=== PATIENT | female | born 1960 | race Caucasian/White ===

== ENCOUNTER 2023-04-21 10:43 | Day surgery (SDC) | payer MEDICAID, SELFPAY ==
[2023-04-21 11:25] VITALS: BP 143/64; PULSE 58; RESP 18; TEMP 36.6; O2SAT 99
[2023-04-21] MEDS: Tropicam./Phenyleph. (1/2.5%) 5 ML BTL OD ×3 (11:35→11:44)
--- NOTE | 2023-04-21 11:43 | ANES.PREOP_ITS ---
General Info Date of Service Date Performed: 04/21/23 Height: 4 ft 11 in Weight: 47.2 kg Body Mass Index (BMI): 20.9 Surgical Procedure: Operation Date: 04/21/23 12:55 Proposed Procedure Side Surgeon p Cataract Extraction with IOL Implant Right Polo Taylor MD Meds Allergies and Home Medications Allergies Allergy/AdvReac Type Severity Reaction Status Date / Time No Known Allergies Allergy Unverified 04/21/23 11:29 Home Medication Medication Instructions Recorded lisinopril 10 mg tablet 10 mg PO DAILY 04/18/23 naproxen 500 mg tablet 500 mg PO BID 04/18/23 nicotine 7 mg/24 hr daily 7 mg transdermal DAILY 04/18/23 transdermal patch simvastatin 20 mg tablet 10 mg PO DAILY 04/18/23 timolol 0.5 % eye drops 1 drp ophthalmic (eye) QAM 04/18/23 triamcinolone acetonide 0.1 % 1 applic topical BID 04/18/23 topical cream Current Visit Medications: Current Medications Generic Name Dose Route Start Last Admin Trade Name Freq PRN Reason Stop Dose Admin Acetaminophen 1,000 mg 04/21/23 06:00 Acetaminophen 500 Mg Tab PO 05/21/23 05:59 Q4H PRN PRN Balanced Salt Solution 500 ml 04/21/23 06:00 Balanced Salt Soln.-Plus 500 Ml Bag OP 05/21/23 05:59 DIRECTED COUNTS INCLUDE 234 BEDS AT THE [facility] Miscellaneous Medication 0 ml 04/21/23 06:00 Prednisolone 1%, Moxifloxacin 0.5%, Nepafenac 0.1% 5ml Btl OD 05/21/23 05:59 DIRECTED ISA Miscellaneous Medication 0 ml 04/21/23 06:00 04/21/23 11:40 Tropicam./Phenyleph. (1/2.5%) 5 Ml Btl OD 05/21/23 05:59 1 drp DIRECTED ISA Administration Tetracaine HCl 0 ml 04/21/23 06:00 Tetracaine 0.5% 4 Ml Btl OD 05/21/23 05:59 DIRECTED ISA PFSH Active Problems Active Problems: Problem Status Onset Code Nuclear age-related cataract, right eye H25.11 Medical History Medical History Backache Cataract Congestion of respiratory tract COPD (chronic obstructive pulmonary disease) Cough productive of clear sputum Elevated blood pressure reading without diagnosis of hypertension Glaucoma HLD (hyperlipidemia) Lumbago with sciatica Nicotine dependence Posterior rhinorrhea Shortness of breath at rest Trochanteric bursitis of right hip Surgical History Surgical History History of tubal ligation Tobacco Smoking/Tobacco Use Status: Current-Occasional Tobacco Type: cigarettes Alcohol Alcohol Intake: never Substance Use Substance use: Never Substance use type: does not use Vital Signs and Lab Results Vital Signs Most Recent Vital Signs in EMR: Most Recent Vital Signs Temp Pulse Resp BP Pulse Ox 36.6 C 58 L 18 143/64 H 99 04/21/23 11:25 04/21/23 11:25 04/21/23 11:25 04/21/23 11:25 04/21/23 11:25 Lab Results Blood Type / Crossmatch: No Data to Display Complete Blood Count: No Data to Display Complete Metabolic Panel: No Data to Display Liver Function Panel: No Data to Display Coagulation Panel: No Data to Display Cardiac Panel: No Data to Display Arterial Blood Gas: No Data to Display Venous Blood Gas: No Data to Display Pancreas Panel: No Data to Display Thyroid Panel: No Data to Display Infectious Disease: No Data to Display Blood Cultures: No Data to Display Toxicology Panel: No Data to Display Anesthesia Assessment and Plan Anesthesia History Personal History: No History of Anesthesia Complications Family History: No Family History of Anesthesia Complications Exercise Tolerance Exercise Tolerance: Metabolic Equivalents>4 Pertinent Negatives Pertinent Negatives: No Major Cardiovascular Symptoms or Complaints Cardiac & Pulmonary Exam Cardiac Exam: Normal S1/S2 Heart Sounds Pulmonary Exam: Clear Bilateral Breath Sounds Implantable Cardiac Device Does patient have a Pacemaker or an ICD?: No Airway Exam Known Difficult Airway: No Mallampati Class: 1 Mouth Opening: Normal (> 3cm) Thyromental Distance: Greater than 3 cm Neck Range of Motion: Full ROM Neck Circumference: Normal Teeth Condition: Removable Dentures/Plates Upper, Removable Dentures/Plates Lower and Edentulous ASA Classification ASA Score: ASA 2 Emergency Case?: No NPO Status NPO Status: NPO Clears >2 hours, Solids >8 hours Anesthesia Plan Resuscitation Status: Full Code Anesthesia Technique: MAC Anesthesia Airway Planned: Natural Airway Monitors Used: Standard Monitors
[2023-04-21 12:12] VITALS: BMI 20.9
[2023-04-21] MEDS: Povidone-Iodine Ophth 30 ML BTL ×2 (12:43→12:57)
[2023-04-21] MEDS: Tetracaine 0.5% 4 ML BTL OD (12:43)
[2023-04-21] MEDS: Lidocaine 1% Pres-Free 5 ML VIAL (12:44)
[2023-04-21] MEDS: Balanced Salt Soln.-PLUS 500 ML BAG OP (12:45)
[2023-04-21] MEDS: Duovisc Viscoelastic System EACH 1 EACH (12:46)
[2023-04-21] MEDS: Phenylephrine/Lidocaine (15/10) MG/ML 1 ML VIAL (12:46)
[2023-04-21 13:02] VITALS: BP 135/73; PULSE 65; RESP 18; TEMP 36.2; O2SAT 98
--- NOTE | 2023-04-21 13:03 | W.PM.DSUDISC ---
Date of service: 04/21/23 Time of Service: 13:04 Discharge Plan Disposition Patient Disposition: Home Discharge Details Attending Provider: Polo Taylor Primary Care Provider: Sergio Toledo [place] Meds and New Rx's Prescriptions: No Action lisinopril 10 mg Tablet 10 mg PO DAILY naproxen 500 mg Tablet 500 mg PO BID nicotine 7 mg/24 hr Patch 24 Hour 7 mg transdermal DAILY simvastatin 20 mg Tablet 10 mg PO DAILY triamcinolone acetonide 0.1 % Cream 1 applic TOPICAL BID timolol 0.5 % Drops 1 drp ophthalmic (eye) QAM Discharge Instructions Stand Alone Forms: Post-op Topical Cataract, Jose Ramon [place]ey ([facility]) Discharge Orders Discharge Orders: Discharge Order (Routine); Ordered 04/21/23 Ordered By: Polo Taylor DS: Diagnosis Discharge Diagnosis (1) Nuclear age-related cataract, right eye: Status: Resolved
--- NOTE | 2023-04-21 13:04 | W.PM.OP ---
Date of service: 04/21/23 Time of Service: 13:04 Operative Note Operative Note DATE OF PROCEDURE: 04/21/23 PRE-OP DIAGNOSIS: Nuclear cataract, right eye POST-OP DIAGNOSIS: same PROCEDURE: Cataract extraction using phacoemulsification with intraocular lens implant, right eye SURGEON: Polo Taylor ANESTHESIA TYPE: Local By Surgeon and MAC Refer to Anesthesia Record ESTIMATED BLOOD LOSS: 0 PATHOLOGY: none sent COMPLICATIONS: None Patient was transported to: same day Patient's condition: stable Implants: Roosevelt & Roosevelt Tecnis Eyhance DIB00 Indications: Progressive visual loss due to cataract, right eye Procedure Description: CATARACT SURGERY OPERATIVE REPORT PREOPERATIVE DIAGNOSIS: 1. Nuclear cataract, right eye POSTOPERATIVE DIAGNOSIS: Same OPERATION: 1. Cataract extraction using phacoemulsification with posterior chamber intraocular lens implant, right eye. IOL: IOL It Business Analyst/Model: Roosevelt & Roosevelt Tecnis Eyhance DIB00 IOL Power: + 24.5 diopters IOL Serial Number: [id number] Optic Diameter: 6.0mm Haptic/Overall Diameter: 13.0mm PHACO INFO: MikelWriteReader ApSon Vision System with OZil and Active Fluidics Cumulative Dispersed Energy (CDE): 10.35 seconds SURGEON: Polo Taylor MD, LADONNA ANESTHESIA: Monitored Anesthesia Care (MAC), with local sub-tenon's anesthetic infiltration COMPLICATIONS: None SPECIMENS: None INDICATIONS FOR PROCEDURE: The patient is a 62-year-old lady with history of diminished visual acuity in her right eye secondary to the development of nuclear cataract. She is significantly symptomatic that she desires cataract surgery and attempt to improve and maximize her vision. The option of cataract surgery was offered to the patient and she wished to proceed. See office notes for detailed information. PROCEDURE: The correct surgical eye was identified and marked as the right eye and the pupil was dilated in the preoperative area using mydriatics and cycloplegics. The dilated pupil size was 7.0 mm. Oral sedation was administered in the form of an Imprimis MKO Melt (midazolam 3mg/ketamine 25mg/ondansetron 2mg). The patient was brought to the operating room where cardiopulmonary monitoring was instituted and surgical time-out was performed, confirming the correct operative eye and IOL power. Topical anesthesia was administered and ophthalmic povidone-iodine 5% was instilled into the conjunctival fornices. The jcarlos-ocular area was prepped with Betadine 10% solution and draped in the usual sterile fashion for intraocular surgery, including an aperture drape. A Tegaderm transparent film dressing was cut in half and used to cover the lashes and lid margins. Care was taken to sequester the lashes and lid margins under the Tegaderm dressing. A lid speculum was placed between the lids of the operative eye and the Mikel LuxOR Revalia operating microscope was maneuvered into position. Sanjeev scissors were then used to make a conjunctival buttonhole approximately 6mm posterior to the limbus in the inferonasal quadrant. Blunt dissection was carried out to expose bare sclera, and a blunt-tipped sub-tenon?s anesthesia cannula was introduced and passed posteriorly along the globe where non-preserved plain lidocaine was injected into posterior sub-Tenon?s space. A sideport knife was used to make a paracentesis port. Intraocular phenylephrine/lidocaine was injected into the anterior chamber. The anterior chamber was filled with viscoelastic. A keratome knife was used to construct a 2-plane clear corneal tunnel extending 2.0mm into clear cornea. A flap was raised on the anterior capsule and capsulorhexis forceps were used to complete a continuous curvilinear capsulorhexis of 5.0 mm. Balanced salt solution was then used to perform cortical cleaving hydrodissection and nuclear hydrodelineation until the lens could be freely rotated within the capsular bag. The lens nucleus was then disassembled and removed within the capsular bag and iris plane using phacoemulsification. Residual cortical material was removed using the I/A handpiece. The posterior capsule was carefully polished to remove as much residual lens epithelial cells as safely possible. The capsular bag was then inflated and the anterior chamber deepened with cohesive viscoelastic. The lens implant described above was inserted into the capsular bag using the Roosevelt and Dereck Simplicity pre-loaded injector. A Kuglen hook was used to dial the IOL into position. Residual viscoelastic was then removed first from posterior to the IOL, then from the anterior chamber using the I/A handpiece. The lens implant was noted to center nicely within the capsular bag. The incisions were stromally hydrated, and the anterior chamber was reformed using BSS. Then 0.5cc of moxifloxacin 1.0mg/ml were injected into the capsular bag and anterior chamber. The incisions were checked with a Weck spear and found to be secure. Several drops of ophthalmic povidone-iodine 5% were then applied to the eye followed by two drops of Imprimis combination prednisolone/moxifloxacin/nepafenac solution. The drapes were removed and a clear plastic protective eye shield was placed over the eye. The patient was then returned to Same Day Surgery in stable condition.
--- NOTE | 2023-04-21 13:13 | W.ANESPOSTOP ---
Postoperative Evaluation Date, Time and Location Date Performed: 04/21/23 Time Performed: 13:03 Patient Location: Day Surgery Unit Vital Signs Most Recent Imported Vital Signs: Most Recent Vital Signs Temp Pulse Resp BP Pulse Ox 36.2 C L 65 18 135/73 98 04/21/23 13:02 04/21/23 13:02 04/21/23 13:02 04/21/23 13:02 04/21/23 13:02 Pain Score Most Recent Pain Score: Most Recent Pain Score Pain Level 0 04/21/23 13:02 Assessment Mental Status: Awake (Alert & Oriented to Patient Baseline) Airway and Respiratory Function: Patent airway with normal (patient baseline) respiratory exam Cardiovascular Function: Hemodynamically Stable Hydration Status: Adequately Hydrated Nausea & Vomiting: No Nausea or Vomiting Pain: Pt. Denies Any Pain Peripheral Nerve Block: Patient did not receive a nerve block
[2023-04-21 13:34] VITALS: BP 132/96; PULSE 77; RESP 18; TEMP 36.7; O2SAT 97
== END 2023-04-21 13:43 | disposition home or self-care (01) ==
LOC: SUR 10:46
PROVIDERS: PCP Neuromusculoskeletal Medicine & OMM; Visit Provider Ophthalmology
PROC: (CPT 66984; principal; 2023-04-21 12:45)
DX: H25.11 Age-related nuclear cataract, right eye (principal)
CPT/HCPCS: 66984; V2632

== ENCOUNTER 2023-05-05 10:24 | Day surgery (SDC) | payer MEDICAID, SELFPAY ==
[2023-05-05 10:35] VITALS: BP 165/82; PULSE 69; RESP 16; TEMP 36.3; O2SAT 99
[2023-05-05] MEDS: Tropicam./Phenyleph. (1/2.5%) 5 ML BTL OS ×3 (10:41→10:54)
[2023-05-05 10:43] VITALS: BMI 21.3
--- NOTE | 2023-05-05 10:43 | W.ANESPRE ---
General Info Date of Service Date Performed: 05/05/23 Height: 4 ft 11 in Weight: 48 kg Body Mass Index (BMI): 21.3 Surgical Procedure: Operation Date: 05/05/23 12:10 Proposed Procedure Side Surgeon p Cataract Extraction with IOL Implant Left Polo Taylor MD Meds Allergies and Home Medications Allergies Allergy/AdvReac Type Severity Reaction Status Date / Time No Known Allergies Allergy Unverified 05/05/23 10:32 Home Medication Medication Instructions Recorded lisinopril 10 mg tablet 10 mg PO DAILY 04/18/23 naproxen 500 mg tablet 500 mg PO BID 04/18/23 nicotine 7 mg/24 hr daily 7 mg transdermal DAILY 04/18/23 transdermal patch simvastatin 20 mg tablet 10 mg PO DAILY 04/18/23 timolol 0.5 % eye drops 1 drp ophthalmic (eye) QAM 04/18/23 triamcinolone acetonide 0.1 % 1 applic topical BID 04/18/23 topical cream Current Visit Medications: Current Medications Generic Name Dose Route Start Last Admin Trade Name Freq PRN Reason Stop Dose Admin Acetaminophen 1,000 mg 05/05/23 06:00 Acetaminophen 500 Mg Tab PO 06/04/23 05:59 Q4H PRN PRN Balanced Salt Solution 500 ml 05/05/23 06:00 Balanced Salt Soln.-Plus 500 Ml Bag OP 06/04/23 05:59 DIRECTED ISA Miscellaneous Medication 0 ml 05/05/23 06:00 Prednisolone 1%, Moxifloxacin 0.5%, Nepafenac 0.1% 5ml Btl OS 06/04/23 05:59 DIRECTED ISA Miscellaneous Medication 0 ml 05/05/23 06:00 05/05/23 10:41 Tropicam./Phenyleph. (1/2.5%) 5 Ml Btl OS 06/04/23 05:59 1 drp DIRECTED ISA Administration Tetracaine HCl 0 ml 05/05/23 06:00 Tetracaine 0.5% 4 Ml Btl OS 06/04/23 05:59 DIRECTED ISA PFSH Active Problems Active Problems: Problem Status Onset Code Nuclear age-related cataract, left eye H25.12 Nuclear age-related cataract, right eye H25.11 Medical History Medical History Backache Cataract Congestion of respiratory tract COPD (chronic obstructive pulmonary disease) Cough productive of clear sputum Elevated blood pressure reading without diagnosis of hypertension Glaucoma HLD (hyperlipidemia) Lumbago with sciatica Nicotine dependence Posterior rhinorrhea Shortness of breath at rest Trochanteric bursitis of right hip Surgical History Surgical History History of tubal ligation Tobacco Smoking/Tobacco Use Status: Current-Occasional Tobacco Type: cigarettes Alcohol Alcohol Intake: never Substance Use Substance use: Never Substance use type: does not use Vital Signs and Lab Results Vital Signs Most Recent Vital Signs in EMR: Most Recent Vital Signs Temp Pulse Resp BP Pulse Ox 36.3 C L 69 16 165/82 H 99 05/05/23 10:35 05/05/23 10:35 05/05/23 10:35 05/05/23 10:35 05/05/23 10:35 Lab Results Blood Type / Crossmatch: No Data to Display Complete Blood Count: No Data to Display Complete Metabolic Panel: No Data to Display Liver Function Panel: No Data to Display Coagulation Panel: No Data to Display Cardiac Panel: No Data to Display Arterial Blood Gas: No Data to Display Venous Blood Gas: No Data to Display Pancreas Panel: No Data to Display Thyroid Panel: No Data to Display Infectious Disease: No Data to Display Blood Cultures: No Data to Display Toxicology Panel: No Data to Display Anesthesia Assessment and Plan Anesthesia History Personal History: No History of Anesthesia Complications Family History: No Family History of Anesthesia Complications Exercise Tolerance Exercise Tolerance: Metabolic Equivalents>4 Pertinent Negatives Pertinent Negatives: No Major Cardiovascular Symptoms or Complaints Cardiac & Pulmonary Exam Cardiac Exam: Normal S1/S2 Heart Sounds Pulmonary Exam: Clear Bilateral Breath Sounds Implantable Cardiac Device Does patient have a Pacemaker or an ICD?: No Airway Exam Known Difficult Airway: No Mallampati Class: 1 Mouth Opening: Normal (> 3cm) Thyromental Distance: Greater than 3 cm Neck Range of Motion: Full ROM Neck Circumference: Normal Teeth Condition: Removable Dentures/Plates Upper, Removable Dentures/Plates Lower and Edentulous ASA Classification ASA Score: ASA 2 Emergency Case?: No NPO Status NPO Status: NPO Clears >2 hours, Solids >8 hours Anesthesia Plan Resuscitation Status: Full Code Anesthesia Technique: MAC Anesthesia Airway Planned: Natural Airway Monitors Used: Standard Monitors
[2023-05-05] MEDS: Balanced Salt Soln.-PLUS 500 ML BAG OP (12:00)
[2023-05-05] MEDS: Duovisc Viscoelastic System EACH 1 EACH (12:01)
[2023-05-05] MEDS: Tetracaine 0.5% 4 ML BTL OS (12:01)
[2023-05-05] MEDS: Lidocaine 1% Pres-Free 5 ML VIAL (12:02)
[2023-05-05] MEDS: Phenylephrine/Lidocaine (15/10) MG/ML 1 ML VIAL (12:03)
[2023-05-05] MEDS: Povidone-Iodine Ophth 30 ML BTL (12:04)
[2023-05-05 12:17] VITALS: BP 135/79; PULSE 74; RESP 16; TEMP 36.9; O2SAT 96
--- NOTE | 2023-05-05 12:19 | W.PM.DSUDISC ---
Date of service: 05/05/23 Time of Service: 12:19 Discharge Plan Disposition Patient Disposition: Home Discharge Details Attending Provider: Polo Taylor Primary Care Provider: Sergio Toledo [place] Meds and New Rx's Prescriptions: No Action lisinopril 10 mg Tablet 10 mg PO DAILY naproxen 500 mg Tablet 500 mg PO BID nicotine 7 mg/24 hr Patch 24 Hour 7 mg transdermal DAILY simvastatin 20 mg Tablet 10 mg PO DAILY triamcinolone acetonide 0.1 % Cream 1 applic TOPICAL BID timolol 0.5 % Drops 1 drp ophthalmic (eye) QAM Discharge Instructions Stand Alone Forms: Post-op Topical Cataract, Jose Ramon [place] ([facility]) Discharge Orders Discharge Orders: Discharge Order (Routine); Ordered 05/05/23 Ordered By: Polo Taylor DS: Diagnosis Discharge Diagnosis (1) Nuclear age-related cataract, left eye: Status: Resolved
--- NOTE | 2023-05-05 12:19 | W.PM.OP ---
Date of service: 05/05/23 Time of Service: 12:20 Operative Note Operative Note DATE OF PROCEDURE: 05/05/23 PRE-OP DIAGNOSIS: Nuclear cataract, left eye POST-OP DIAGNOSIS: same PROCEDURE: Cataract extraction using phacoemulsification with intraocular lens implant, left eye SURGEON: Polo Taylor ANESTHESIA TYPE: Local By Surgeon and MAC Refer to Anesthesia Record PATHOLOGY: none sent COMPLICATIONS: None Patient was transported to: same day Patient's condition: stable Implants: Roosevelt and Roosevelt Tecnis Eyhance DIB00 Indications: Progressive decreased vision due to cataract, left eye Procedure Description: CATARACT SURGERY OPERATIVE REPORT PREOPERATIVE DIAGNOSIS: 1. Nuclear cataract, left eye POSTOPERATIVE DIAGNOSIS: Same OPERATION: 1. Cataract extraction using phacoemulsification with posterior chamber intraocular lens implant, left eye. IOL: IOL Sand Cutting Machine Operator/Model: Roosevelt & Roosevelt Tecnis Eyhance DIB00 IOL Power: + 24.5 diopters IOL Serial Number: [id number] Optic Diameter: 6.0 mm Haptic/Overall Diameter: 13.0 mm PHACO INFO: MikelAdhesive.coon Vision System with OZil and Active Fluidics Cumulative Dispersed Energy (CDE): 10.12 seconds SURGEON: Pool Taylor MD, LADONNA ANESTHESIA: Monitored A [facility] (MAC), with local sub-tenon's anesthetic infiltration COMPLICATIONS: None SPECIMENS: None INDICATIONS FOR PROCEDURE: The patient is a 62-year-old lady with history of diminished visual acuity in her left eye secondary to the development of nuclear Cataract. She is significantly symptomatic from cataract that she desires cataract surgery and attempt to improve and maximize her vision. See office notes for detailed information. PROCEDURE: The correct surgical eye was identified and marked as the left eye and the pupil was dilated in the preoperative area using mydriatics and cycloplegics. The dilated pupil size was 6.0 mm. Oral sedation was administered in the form of an Imprimis MKO Melt (midazolam 3mg/ketamine 25mg/ondansetron 2mg). The patient was brought to the operating room where cardiopulmonary monitoring was instituted and surgical time-out was performed, confirming the correct operative eye and IOL power. Topical anesthesia was administered and ophthalmic povidone-iodine 5% was instilled into the conjunctival fornices. The jcarlos-ocular area was prepped with Betadine 10% solution and draped in the usual sterile fashion for intraocular surgery, including an aperture drape. A Tegaderm transparent film dressing was cut in half and used to cover the lashes and lid margins. Care was taken to sequester the lashes and lid margins under the Tegaderm dressing. A lid speculum was placed between the lids of the operative eye and the Mikel LuxOR Revalia operating microscope was maneuvered into position. Sanjeev scissors were then used to make a conjunctival buttonhole approximately 6mm posterior to the limbus in the inferonasal quadrant. Blunt dissection was carried out to expose bare sclera, and a blunt-tipped sub-tenon?s anesthesia cannula was introduced and passed posteriorly along the globe where non-preserved plain lidocaine was injected into posterior sub-Tenon?s space. A sideport knife was used to make a paracentesis port. Intraocular phenylephrine/lidocaine was injected into the anterior chamber.. The anterior chamber was filled with viscoelastic. A keratome knife was used to construct a 2-plane near-clear corneal tunnel extending 2.0mm into clear cornea. A flap was raised on the anterior capsule and capsulorhexis forceps were used to complete a continuous curvilinear capsulorhexis of 5.0 mm. Balanced salt solution was then used to perform cortical cleaving hydrodissection and nuclear hydrodelineation until the lens could be freely rotated within the capsular bag. The lens nucleus was then disassembled and removed within the capsular bag and iris plane using phacoemulsification. Residual cortical material was removed using the irrigation/aspiration handpiece. The posterior capsule was carefully polished to remove as much residual lens epithelial cells as safely possible. The capsular bag was then inflated and the anterior chamber deepened with viscoelastic. The lens implant described above was inserted into the capsular bag using the Roosevelt and Roosevelt Simplicity pre-loaded injector. A Kuglen hook was used to dial the IOL into position. Residual viscoelastic was then removed first from posterior to the IOL, then from the anterior chamber using the I/A handpiece. The lens implant was noted to center nicely within the capsular bag. The incisions were stromally hydrated, and the anterior chamber was reformed using BSS. Then 0.5cc of moxifloxacin 1.0mg/ml were injected into the capsular bag and anterior chamber. The incisions were checked with a Weck spear and found to be secure. Several drops of ophthalmic povidone-iodine 5% were then applied to the eye followed by two drops of Imprimis combination prednisolone/moxifloxacin/nepafenac solution. The drapes were removed and a clear plastic protective eye shield was placed over the eye. The patient was then returned to Same Day Surgery in stable condition.
--- NOTE | 2023-05-05 12:43 | W.ANESPOSTOP ---
Postoperative Evaluation Date, Time and Location Date Performed: 05/05/23 Time Performed: 12:20 Patient Location: Day Surgery Unit Vital Signs Most Recent Imported Vital Signs: Most Recent Vital Signs Temp Pulse Resp BP Pulse Ox 36.9 C 74 16 135/79 96 05/05/23 12:17 05/05/23 12:17 05/05/23 12:17 05/05/23 12:17 05/05/23 12:17 Pain Score Most Recent Pain Score: Most Recent Pain Score Pain Level 0 05/05/23 12:17 Assessment Mental Status: Awake (Alert & Oriented to Patient Baseline) Airway and Respiratory Function: Patent airway with normal (patient baseline) respiratory exam Cardiovascular Function: Hemodynamically Stable Hydration Status: Adequately Hydrated Nausea & Vomiting: No Nausea or Vomiting Pain: Pt. Denies Any Pain Peripheral Nerve Block: Patient did not receive a nerve block
[2023-05-05 12:49] VITALS: BP 106/92; PULSE 75; RESP 16; TEMP 36.4; O2SAT 96
== END 2023-05-05 12:54 | disposition home or self-care (01) ==
LOC: SUR 10:25
PROVIDERS: PCP Neuromusculoskeletal Medicine & OMM; Visit Provider Ophthalmology
PROC: (CPT 66984; principal; 2023-05-05 12:00)
DX: H25.12 Age-related nuclear cataract, left eye (principal); F17.200 Nicotine dependence, unspecified, uncomplicated
CPT/HCPCS: 66984; V2632